=== PATIENT | male | born 1975 | race African-American/Black ===

== ENCOUNTER 2020-03-29 18:37 | Emergency (ER) | payer OTHER, SELFPAY ==
[2020-03-29] MEDS ORDERED: Lidocaine 1% PF 5 ML VIAL ONE ×2 (19:38→22:00)
[2020-03-29] MEDS ORDERED: Adacel (T-DAP) 0.5 ML SYRINGE ONE (19:39)
--- NOTE | 2020-03-29 20:08 | RAD ---
RIGHT THUMB THREE VIEWS: 03/29/20 HISTORY: Table saw injury to thumb. Soft tissue injury of the thumb is noted. No fracture is seen. Some lucency is seen in overlying dist al aspect of the proximal phalanx but this is probably just on the basis of the laceration. IMPRESSION: No evidence of fracture. POS: [facility]
[2020-03-29] MEDS ORDERED: CEFAZOLIN 1 GM VIAL ONE (20:38)
[2020-03-29 20:41] LABS: #Basophils 0.1 thou/uL (0.0-0.2); #Eosinphils 0.1 thou/uL (0.0-0.7); #Lymphocytes 2.2 thou/uL (1.20-3.40); #Monocytes 0.6 thou/uL (0.11-0.59); #Neutrophils 5.8 thou/uL (1.40-6.50); %Basophils 1.1 % (0.0-1.0); %Eosinophils 0.8 % (0.0-10.0); %Lymphocytes 24.8 % (21.0-51.0); %Monocytes 7.1 % (0.0-10.0); %Neutrophils 66.2 % (42.0-75.0); Hemoglobin 14.6 g/dL (14.0-18.0); Mean Corpuscular HGB CONC 33.9 g/dL (32.0-36.0); Mean Corpuscular Hemoglobin 32.5 pg (27.0-31.0); Mean Corpuscular Volume 95.8 fL (78.0-98.0); Mean Platelet Volume 6.6 fL (7.4-10.4); Platelet Count 259 thou/uL (130-400); RBC Distribution Width 11.5 % (11.5-14.5); Red Blood Cell (RBC) Count 4.51 mill/uL (4.70-6.10); White Blood Cell (WBC) Count 8.8 thou/uL (4.8-10.8)
[2020-03-29 21:06] LABS: ALT (SGPT) 14 U/L (8-55); AST (SGOT) 21 U/L (5-34); Alkaline Phosphatase 90 U/L (40-110); Anion Gap 10 mmol/L (10-20); BUN (Urea Nitrogen) 11 mg/dL (8.9-20.6); Bilirubin, Total 0.4 mg/dL (0.2-1.2); Calc. Creatinine Clearance 0 mL/min (70-130); Calcium 9.3 mg/dL (7.8-10.44); Carbon Dioxide 27 mmol/L (22-29); Chloride 102 mmol/L (98-107); Estimated GFR-MDRD 90; Globulin 3.4 g/dL (2.4-3.5); Glucose 125 mg/dL (70-105); Potassium 3.3 mmol/L (3.5-5.1); Protein, Total 7.4 g/dL (6.0-8.3); Sodium 136 mmol/L (136-145)
[2020-03-29] MEDS ORDERED: Morphine 4 MG/ML VIAL ONE (21:45)
[2020-03-29] MEDS ORDERED: Ondansetron PF 4 MG/2 ML Vial ONE (21:45)
[2020-03-29] MEDS ORDERED: Bacitracin 1 PK ONE (22:17)
== END 2020-03-29 22:34 | disposition home or self-care (01) ==
LOC: ERS 18:37
DX: S66.021A Laceration of long flexor muscle, fascia and tendon of right thumb at wrist and hand level, initial encounter (principal); F17.210 Nicotine dependence, cigarettes, uncomplicated; W45.8XXA Other foreign body or object entering through skin, initial encounter
CPT/HCPCS: 12002; 80053; 85025; 90471; 90715; 96365; 96375; J0690; J2001; J2270; J2405

== ENCOUNTER 2020-03-30 11:44 | Outpatient (CLI) | payer OTHER, SELFPAY ==
[2020-03-31 13:17] LABS: SARS-CoV-2 MS2 Positive; SARS-CoV-2 N Gene Negative; SARS-CoV-2 S Gene Negative; SARS-CoV-2 orf1ab Negative
== END 2020-03-30 11:45 | disposition home or self-care (01) ==
LOC: SCSLAB 11:44
PROVIDERS: ATTEND Surgery Surgery of the Hand
DX: Z01.812 Encounter for preprocedural laboratory examination (principal); Z11.59 Encounter for screening for other viral diseases; S66.129A Laceration of flexor muscle, fascia and tendon of unspecified finger at wrist and hand level, initial encounter; S64.21XA Injury of radial nerve at wrist and hand level of right arm, initial encounter
CPT/HCPCS: 87635; U0003

== ENCOUNTER 2020-04-02 05:43 | Day surgery (SDC) | payer SELFPAY ==
[2020-03-30 12:32] VITALS: BMI 23.0
[2020-04-02] MEDS ORDERED: Bupivacaine 0.25% HCL 30 ML VIAL ONE (06:43)
[2020-04-02] MEDS ORDERED: Lidocaine 1% w/Epinephrine 1:100K 20 ML VIAL ONE (06:43)
[2020-04-02] MEDS ORDERED: Fentanyl 100 MCG/2 ML VIAL ONE (06:53)
[2020-04-02] MEDS ORDERED: Midazolam HCl 2 mg/2 ml Vial ONE (06:53)
[2020-04-02] MEDS ORDERED: Lidocaine 1% (PF) 30 ML VIAL ONE (07:10)
[2020-04-02] MEDS ORDERED: Ondansetron PF 4 MG/2 ML Vial ONE (12:04)
[2020-04-02] MEDS ORDERED: Dexamethasone 20 MG/5 ML VIAL ONE (12:04)
[2020-04-02] MEDS ORDERED: Ketorolac Tromethamine 30 MG/ML VIAL ONE (12:04)
[2020-04-02] MEDS ORDERED: Lidocaine 1% PF 5 ML VIAL ONE (12:04)
[2020-04-02] MEDS ORDERED: PROPOFOL 200 MG/20 ML VIAL ONE (12:04)
[2020-04-02] MEDS ORDERED: EPHEDRINE 25 MG/5 ML SYRINGE ONE (12:04)
--- NOTE | 2020-04-03 09:07 | OP ---
DATE OF PROCEDURE: 04/02/2020 PREOPERATIVE DIAGNOSES: 1. Right thumb zone 2 laceration of flexor pollicis longus tendon. 2. Right thumb zone 2 radial digital nerve laceration. POSTOPERATIVE DIAGNOSES: 1. Zone 2 right thumb flexor pollicis longus tendon laceration. 2. Right thumb zone 2 radial digital nerve laceration. 3. Right thumb zone 2 radial digital artery and vein laceration. 4. Zone 2 right thumb ulnar digital nerve laceration. 5. Open distal phalanx fracture, right thumb. 6. Right thumb volar plate ligament laceration. PROCEDURE PERFORMED: 1. Washout of right thumb. 2. Primary repair of zone 2 right thumb flexor pollicis longus tendon laceration. 3. Primary repair of right thumb radial digital nerve laceration, zone 2. 4. Primary repair of ulnar digital nerve laceration, right thumb, zone 2. 5. Primary repair of volar plate ligament, right thumb IP joint. ANESTHESIA: General and local. FEEDER/FOLDER: Please see operative record. TOURNIQUET TIME: 53 minutes. ESTIMATED BLOOD LOSS: Less than 10 mL. FINDINGS: There was a small avulsion fracture at the base of the distal phalanx at the IP joint. There was a volar plate laceration involving the IP joint. There was a 100% laceration of the FPL tendon zone 2. There are lacerations involving both the radial and ulnar digital neurovascular bundles with thrombosed digital arteries and veins; the thumb was perfusing well most likely on dorsal circulation and the wound appeared to be relatively clean without any foreign bodies. IMPLANTS: None. CONDITION: Stable. INDICATIONS FOR PROCEDURE: Patient is a 45-year-old male who was using a table saw as he working with piece of drywall. This occurred last . He was seen at [facility]. His wound was irrigated and skin was primarily repaired. He was instructed to follow up in our clinic for further treatment. He had absent flexion of the thumb. He had loss of sensation at least over the radial digital tip of the right thumb and has questionable over the ulnar tip of the right thumb. Thumb did appear to be perfusing okay and in the clinic recommended surgery to fix tendon and nerve repair at the very least. He had to abide by [facility] protocol and as far COVID testing and self-quarantine. Once this was completed, COVID test revealed negative findings and he self-quaratined. We prepped him for surgery on Thursday morning. He was preoperatively dosed with antibiotics. All risks and goals associated with surgery were discussed and described by me with the patient. I also emphasized the importance of postoperative therapy. He voiced understanding and agreed to proceed. DESCRIPTION OF PROCEDURE: He was brought to the operating room and placed supinely on the operating room table. Timeout was performed. Antibiotics had been given. The right upper extremity tourniquet was applied and general anesthesia was induced by the Anesthesia Team. The right upper extremity was then exsanguinated using an Esmarch wrap and the tourniquet was inflated to 250 mmHg. I removed the single stitch that was placed in the ER. I opened the patient's laceration that extended over the volar portion of the thumb across the IP joint flexion crease and then I extended slightly proximally using Linda's technique. Using a 15-lade scalpel, careful dissection was continued bluntly using tenotomy scissors to elevate the skin flaps. The skin flaps were retracted using 4-0 nylon suture. I washed out the wound. I dissected down to the joint. There was an open joint space at the IP joint. There appeared to a small avulsion fracture involving the base of the distal phalanx. The volar plate was lacerated. I was able to repair the volar plate injury using 3.0 Fiberwire suture and this held the small avulsion fracture back in an acceptable alignment. I then located the distal and proximal stumps of the radial and digital ulnar nerves. I appeared that he also suffered prominent radial and ulnar digital artery and vein lacerations and vascular structures were already thrombosed. I repaired the radial and digital nerves primarily using 8-0 nylon sutures, but prior to doing this, I located the distal and proximal stumps of the transected FPL tendon. I debrided the ends, so I have clean tendon ends and edges and I repaired it using 4-strand core technique using a 3.0 Fiberwire in modified Richter suture followed by inverted horizontal mattress suture. There was no need for running epitendinous stitch as the tendon laceration was fairly distal and I was not worried about a bulky tendon repair at this point and furthermore, the tendon repair was nice and did not exhibit much bulk at all at this level. Then I proceeded with the ulnar and radial digital nerve repairs which was repaired primarily. I deflated the tourniquet, irrigated the wound. It should be noted that prior to starting the surgery, I injected a combination of 1% lidocaine plain with 0.25% plain bupivacaine as a digital ring block to the right ring finger. I suture repaired the skin flaps with 4-0 nylon suture. I used a 25-guage needle to puncture the volar distal tip of the thumb. There was good backbleeding appreciated, furthermore he had good capillary refill of the nailbed. Xeroform was applied over the wound along with bulky dressing and he was protected in a thumb spica splint , which was secured using soft roll and an K[place]hal wrap. He tolerated the procedure well and was sent back to the recovery area in stable condition. He will be seen by Hand Therapy in 3 to 4 days and begin postoperative flexor tendon and digital nerve postop rehab protocols. I will see him back in the clinic around postoperative day #8 to 10. He was discharged home on [place] 5/325 one to two tabs p.o. q.6 hours , #30 pills were prescribed. He was also instructed to continue with his antibiotics as previously prescribed for at least a week post injury. Job ID: [id number] [facility]
== END 2020-04-02 11:07 | disposition home or self-care (01) ==
LOC: SDC 05:43
PROVIDERS: ATTEND Surgery Surgery of the Hand
PROC: 0LM70ZZ Reattachment of Right Hand Tendon, Open Approach (ICD-10-PCS; principal; 2020-04-02)
PROC: 01Q60ZZ Repair Radial Nerve, Open Approach (ICD-10-PCS; principal; 2020-04-02)
PROC: 01Q40ZZ Repair Ulnar Nerve, Open Approach (ICD-10-PCS; principal; 2020-04-02)
DX: S64.21XA Injury of radial nerve at wrist and hand level of right arm, initial encounter (principal); S64.01XA Injury of ulnar nerve at wrist and hand level of right arm, initial encounter
CPT/HCPCS: J0690; J1100; J1885; J2001; J2250; J2405; J2704; J3010; S0020